=== PATIENT | female | born 1930 | race African-American/Black ===

== ENCOUNTER 2018-02-18 13:07 | Emergency (ER) | payer MEDICARE, MEDICAID ==
[2018-02-18 13:44] LABS: #Eosinphils 0.2 thou/uL (0.0-0.7); #Monocytes 0.5 thou/uL (0.11-0.59); #Neutrophils 6.3 thou/uL (1.40-6.50); %Basophils 0.4 % (0.0-1.0); %Eosinophils 1.8 % (0.0-10.0); %Lymphocytes 30.1 % (21.0-51.0); %Monocytes 5.1 % (0.0-10.0); %Neutrophils 62.7 % (42.0-75.0); Hemoglobin 12.1 g/dL (12.0-16.0); Mean Corpuscular HGB CONC 30.2 g/dL (32.0-36.0); Mean Corpuscular Volume 72.7 fL (78.0-98.0); Mean Platelet Volume 9.9 fL (7.4-10.4); Platelet Count 256 thou/uL (130-400); Red Blood Cell (RBC) Count 5.53 mill/uL (4.20-5.40); White Blood Cell (WBC) Count 10.1 thou/uL (4.8-10.8)
[2018-02-18 14:01] LABS: Hypochromia SLIGHT = 6-15 cells (100X) (0-5/hpf); MDiff Complete? YES; Microcytosis SLIGHT = 6-15 cells (100X) (0-5/hpf); Ovalocytes SLIGHT = 2-5 cells (100X) (0-1/hpf); PLT Morphology Comment Appears Adequate
[2018-02-18 14:02] LABS: ALT (SGPT) 8 U/L (8-55); AST (SGOT) 15 U/L (5-34); Albumin 3.4 g/dL (3.4-4.8); Alkaline Phosphatase 139 U/L (40-150); Anion Gap 10 mmol/L (10-20); BUN (Urea Nitrogen) 17 mg/dL (9.8-20.1); Bilirubin, Total 0.5 mg/dL (0.2-1.2); Calc. Creatinine Clearance 0 mL/min (70-130); Calcium 8.9 mg/dL (7.8-10.44); Carbon Dioxide 26 mmol/L (23-31); Chloride 109 mmol/L (98-107); Estimated GFR-MDRD Greater than 90; Globulin 3.4 g/dL (2.4-3.5); Glucose 97 mg/dL (83-110); Potassium 3.4 mmol/L (3.5-5.1); Protein, Total 6.8 g/dL (6.0-8.3); Sodium 142 mmol/L (136-145)
--- NOTE | 2018-02-18 14:13 | RAD ---
FRONTAL VIEW CHEST: INDICATIONS: Emergency exam. Pain. Difficulty breathing. COMPARISON: 06/07/2014 FINDINGS: The cardiomediastinal silhouette is stable. There is no new consolidation or effusion. No discrete pneumothorax. No evidence of pleural effusion. Metallic clips are seen at the right upper abdomen. IMPRESSION: No focal consolidation. POS: [facility]
--- NOTE | 2018-02-18 14:16 | RAD ---
LEFT FEMUR TWO VIEW SERIES: FINDINGS: There is incompletely assessed angulation at the left femoral neck. There is a displaced, angulated, and mildly comminuted distal diaphyseal fracture of the left femur. There is diffuse osteopenia. IMPRESSION: 1. Fracture of the distal diaphysis of the left femur with displacement and comminution. 2. Angulation of the proximal left femur, centered about the neck, incompletely evaluated. Dedicate d views of the left hip are recommended. POS: [facility]
[2018-02-18] MEDS ORDERED: Ondansetron HCl/PF 4 MG/2 ML Vial ONE (14:42)
--- NOTE | 2018-02-18 15:25 | RAD ---
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 FINDINGS: There is diffuse osteopenia. No definite acute fracture or subluxation involving the proximal left fe mur. There is partial visualization of the midshaft left femur fracture, better viewed on radiographs dated 02-18-18 of the left femur. IMPRESSION: No definite acute fracture or subluxation of the left hip. Diffuse osteopenia. POS: [facility]
--- NOTE | 2018-02-18 22:12 | CON ---
DATE OF CONSULTATION: 02/18/2018 REQUESTING PHYSICIAN: Dr. Greg Acevedo. CONSULTING PHYSICIAN: Marquis Madison M.D. REASON FOR CONSULTATION: Left femur fracture. HISTORY OF PRESENT ILLNESS: This is an 87-year-old bedbound female who presented to the Emergency Department by way of ambulance after family was moving her in bed and felt a pop in her left thigh. Patient has no sensation from the waist down. She does not mobilize. She is bedbound. She rarely sits in a chair. Family is currently at bedside in the emergency department upon my history and exam today. They report that another family member cares for her primarily and they have someone in the house that comes in to provide care. 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 Patient states that she feels some swelling sensation in her lower leg since the injury today. She is unable to feel any precise pain. She states that she is comfortable otherwise. PAST MEDICAL HISTORY: Significant for Polio, and polio syndrome, gastroesophageal reflux disease. PAST SURGICAL HISTORY: Significant for cholecystectomy, tonsillectomy. SOCIAL HISTORY: Patient lives at home with family and caregivers. She does not mobilize. She denies any alcohol, tobacco or illicit drug use. FAMILY HISTORY: Reviewed and noncontributory. REVIEW OF SYSTEMS: A 10-point review of systems is conducted and otherwise negative except for as stated above. PHYSICAL EXAMINATION: VITAL SIGNS: Show blood pressure of 88/49, pulse of 102, respiratory rate of 20 , pain level of 0, O2 saturation 100% on room air. GENERAL: Patient is awake and alert. She is in no acute distress. She is comfortable lying in bed. Family members are at bedside. HEENT: Head is normocephalic, atraumatic. NECK: Supple. Trachea is midline. Breathing is nonlabored. EXTREMITIES: The lower extremities appear contracted at the hip and then knee. The right leg is externally rotated and the left leg is internally rotated. They are lying almost on top of each other. Patient states that she is able to feel me touch her left lower extremity slightly. Patient has no sensation in her lower extremities. I am able to touch her lightly and both palpate deeply. She expresses no signs of discomfort. She is unable to move either lower extremity. Capillary refill 3 seconds. Upper extremities appear without any signs of injury. RADIOGRAPHIC FINDINGS: Including views of the left femur show a fracture of the distal third shaft of the femur. This appears displaced. The bone quality appears osteoporotic. ASSESSMENT: Left distal femur fracture in a nonambulatory 87-year-old female. PLAN: At this point, I had a discussion with the patient and her family at bedside regarding the plan of care and conservative management from this point. Due to the patient's lack of mobility and lack of sensation, we would like to treat this fracture conservatively. We will provide her with a posterior long leg splint for comfort. They will continue sponge bathing. She will leave this intact and treat it like a cast. They will follow up in our office in 2-3 weeks for further evaluation and new x-rays. All questions have been answered by family and the patient. They are amenable to this plan of care. Case reviewed with Dr. Madison. We will plan to see the patient in our office in 2- 3 weeks. Patient will be discharged home from the emergency department. Procedure Note: A well padded, well molded, posterior long leg splint was applied using 4 inch orthoglass in a position of comfort for the patient. She tolerated the procedure well. [facility]
== END 2018-02-18 18:39 | disposition home or self-care (01) ==
LOC: ERS 13:07
DX: S72.402A Unspecified fracture of lower end of left femur, initial encounter for closed fracture (principal); K21.9 Gastro-esophageal reflux disease without esophagitis; F32.9 Major depressive disorder, single episode, unspecified; X50.1XXA Overexertion from prolonged static or awkward postures, initial encounter
CPT/HCPCS: 71045; 80053; 85025; 96361; 96374; J2405